=== PATIENT | male | born 1955 | race Caucasian/White ===

== ENCOUNTER 2019-07-14 03:57 | Emergency (ER) | payer OTHER ==
[~2019-07-14] VITALS: Ht 170.2 cm; Wt 75.0 kg
[2019-07-14 04:04] VITALS: Ht 170.2 cm; Wt 75.0 kg
[2019-07-14] MEDS ORDERED: NAPROXEN250 MG (04:37)
[2019-07-14] MEDS ORDERED: VOLTAREN100 GM TOPICAL (04:37)
[2019-07-14] MEDS ORDERED: CYCLOBENZAPRINE5 MG (04:38)
[2019-07-14] MEDS ORDERED: HYDROCODONE-A1 UDTA2 PO (04:57)
[2019-07-14] MEDS ORDERED: REQUIP5 MG PO (04:57)
[2019-07-14 05:23] VITALS: BP 140/87
== END 2019-07-14 05:23 | disposition home or self-care (01) ==
LOC: D.ER 03:57
DX: M51.36 Other intervertebral disc degeneration, lumbar region (principal)